=== PATIENT | male | born 1975 | race African-American/Black ===

== ENCOUNTER 2018-07-30 13:12 | Emergency (ER) | payer OTHER ==
[~2018-07-30] VITALS: Ht 172.7 cm; Wt 83.5 kg
[2018-07-30 15:38] VITALS: BP 112/62
[2018-07-30 16:12] LABS: BASO # 0.1 x10^3/uL (0.0-0.2); BASO % 1 % (0-3); EOS # 0.1 x10^3/uL (0.0-0.7); EOS % 2 % (0-3); HEMATOCRIT 46.1 % (39.0-53.0); HEMOGLOBIN 15.6 g/dL (13.0-17.5); LYMPH % 42 % (24-48); MEAN CORPUSCULAR HEMOGLOBIN 31 pg (25-35); MEAN CORPUSCULAR HGB CONC 34 g/dL (31-37); MEAN CORPUSCULAR VOLUME 90 fL (79-100); MONO # 0.5 x10^3/uL (0.0-1.1); MONO % 7 % (0-9); NEUT # 3.5 x10^3uL (1.8-7.7); NEUT % 49 % (31-73); PLATELET COUNT 379 x10^3/uL (140-400); RED BLOOD COUNT 5.11 x10^6/uL (4.30-5.70); RED CELL DISTRIBUTION WIDTH 14.1 % (11.5-14.5); WHITE BLOOD COUNT 7.1 x10^3/uL (4.0-11.0)
[2018-07-30 16:28] LABS: CALCIUM 8.9 mg/dL (8.5-10.1); CREATININE 0.9 mg/dL (0.7-1.3); GFR 112.5; POTASSIUM 3.8 mmol/L (3.5-5.1)
--- NOTE | 2018-07-30 16:29 | RAD ---
EXAM: Head CT without contrast. HISTORY: Headache. TECHNIQUE: Computed tomographic images of the head were obtained without contrast. *One or more of the following individualized dose reduction techniques were utilized for this examination: 1. Automated exposure control. 2. Adjustment of the mA and/or kV according to patient size. 3. Use of iterative reconstruction technique. COMPARISON: None. FINDINGS: There is no acute or subacute extra-axial or intraparenchymal hemorrhage. There is no mass effect or midline shift. There is no hydrocephalus. The chandler-white matter differentiation pattern is intact The visualized portions of the orbits, paranasal sinuses and mastoid air cells are unremarkable. No suspicious calvarial lesion is seen. There are suspected incidental bone islands within the right superior lateral orbital ridge. IMPRESSION: No acute intracranial findings. Electronically signed by: Erendira Mayers MD (07/30/2018 4:25 PM) [place] [id number]
[2018-07-30] MEDS ORDERED: DEXAMETHASONE SOD PHOS 20 MG/5 ML VIAL. IV ONE (16:30)
[2018-07-30] MEDS ORDERED: KETOROLAC 15 MG/ML VIAL. IV ONE (16:30)
[2018-07-30] MEDS ORDERED: diphenhydrAMINE 50 MG/ML VIAL IVP ONE (16:30)
[2018-07-30] MEDS ORDERED: IV NORMAL SALINE 1000ML BAG 1,000 ML IV ONE (16:30)
[2018-07-30 16:35] LABS: ALBUMIN 3.7 g/dL (3.4-5.0); ALBUMIN/GLOBULIN RATIO 1.1 (1.0-1.7); TOTAL BILIRUBIN 0.2 mg/dL (0.2-1.0); TOTAL PROTEIN 7.2 g/dL (6.4-8.2)
--- NOTE | 2018-07-30 16:38 | PHYS DOC ---
Past Medical History Past Medical History: No Pertinent History, Migraines Past Surgical History: No Surgical History Additional Information: 1\2 PACK A DAY Alcohol Use: None Drug Use: None Adult General Chief Complaint Chief Complaint: HEADACHE HPI HPI 43-year-old male presents for evaluation of right frontal headache for 3 weeks. He reports had some nausea earlier today but has not had any in the past. No vomiting, photophobia, vision changes. No recent head injuries or falls. He has been taking ibuprofen at home which she reports helps for several hours but the headache seems to return between 12 and 24 hours later. Review of Systems Review of Systems Constitutional: Denies fever or chills [] Eyes: Denies change in visual acuity, redness, or eye pain [] HENT: Denies nasal congestion or sore throat [] Respiratory: Denies cough or shortness of breath [] Cardiovascular: No additional information not addressed in HPI [] GI: Denies abdominal pain, vomiting, bloody stools or diarrhea [] : Denies dysuria or hematuria [] Musculoskeletal: Denies back pain or joint pain [] Integument: Denies rash or skin lesions [] All other systems were reviewed and found to be within normal limits, except as documented in this note. Current Medications Current Medications Current Medications Medications (Trade) Dose Ordered Sig/Magdalene Start Time Stop Time Status Last Admin Dose Admin Dexamethasone Sodium Phosphate (Decadron) 10 mg 1X ONCE 07/30/18 16:30 07/30/18 16:31 DC 07/30/18 16:32 10 MG Diphenhydramine HCl (Benadryl) 25 mg 1X ONCE 07/30/18 16:30 07/30/18 16:31 DC 07/30/18 16:33 25 MG Ketorolac Tromethamine (Toradol 15mg Vial) 15 mg 1X ONCE 07/30/18 16:30 07/30/18 16:31 DC 07/30/18 16:33 15 MG Sodium Chloride 1,000 ml @ 1,000 mls/hr 1X ONCE 07/30/18 16:30 07/30/18 17:29 07/30/18 16:29 1,000 MLS/HR Allergies Allergies Allergies Coded Allergies Type Severity Reaction Last Updated Verified No Known Drug Allergies 04/22/16 No Physical Exam Physical Exam Constitutional: Well developed, well nourished, no acute distress, non-toxic appearance. [] Eyes: PERRLA, EOMI, conjunctiva normal, no discharge. [] Neck: Normal range of motion, no tenderness, supple, no stridor. [] Cardiovascular:Heart rate regular rhythm, no murmur [] Lungs & Thorax: Bilateral breath sounds clear to auscultation [] Skin: Warm, dry, no erythema, no rash. [] Extremities: No tenderness, no cyanosis, no clubbing, ROM intact, no edema. [] Neurologic: Alert and oriented X 3, normal motor function, normal sensory function, no focal deficits noted. [] Psychologic: Affect normal, judgement normal, mood normal. [] Current Patient Data Vital Signs Vital Signs Date Time Temp Pulse Resp B/P (MAP) Pulse Ox O2 Delivery O2 Flow Rate FiO2 07/30/18 15:38 98.0 77 18 112/62 (79) 100 Room Air 98.0 Lab Values Laboratory Tests Test 07/30/18 16:03 White Blood Count 7.1 x10^3/uL (4.0-11.0) Red Blood Count 5.11 x10^6/uL (4.30-5.70) Hemoglobin 15.6 g/dL (13.0-17.5) Hematocrit 46.1 % (39.0-53.0) Mean Corpuscular Volume 90 fL (79-100) Mean Corpuscular Hemoglobin 31 pg (25-35) Mean Corpuscular Hemoglobin Concent 34 g/dL (31-37) Red Cell Distribution Width 14.1 % (11.5-14.5) Platelet Count 379 x10^3/uL (140-400) Neutrophils (%) (Auto) 49 % (31-73) Lymphocytes (%) (Auto) 42 % (24-48) Monocytes (%) (Auto) 7 % (0-9) Eosinophils (%) (Auto) 2 % (0-3) Basophils (%) (Auto) 1 % (0-3) Neutrophils # (Auto) 3.5 x10^3uL (1.8-7.7) Lymphocytes # (Auto) 3.0 x10^3/uL (1.0-4.8) Monocytes # (Auto) 0.5 x10^3/uL (0.0-1.1) Eosinophils # (Auto) 0.1 x10^3/uL (0.0-0.7) Basophils # (Auto) 0.1 x10^3/uL (0.0-0.2) Sodium Level 140 mmol/L (136-145) Potassium Level 3.8 mmol/L (3.5-5.1) Chloride Level 105 mmol/L (98-107) Carbon Dioxide Level 29 mmol/L (21-32) Anion Gap 6 (6-14) Blood Urea Nitrogen 11 mg/dL (8-26) Creatinine 0.9 mg/dL (0.7-1.3) Estimated GFR (Cockcroft-Gault) 112.5 BUN/Creatinine Ratio 12 (6-20) Glucose Level 96 mg/dL (70-99) Calcium Level 8.9 mg/dL (8.5-10.1) Total Bilirubin 0.2 mg/dL (0.2-1.0) Aspartate Amino Transferase (AST) 20 U/L (15-37) Alanine Aminotransferase (ALT) 37 U/L (16-63) Alkaline Phosphatase 45 U/L (46-116) L Total Protein 7.2 g/dL (6.4-8.2) Albumin 3.7 g/dL (3.4-5.0) Albumin/Globulin Ratio 1.1 (1.0-1.7) Laboratory Tests 07/30/18 16:03 Laboratory Tests 07/30/18 16:03 EKG EKG [] Radiology/Procedures Radiology/Procedures [PROCEDURE: CT HEAD WO CONTRAST EXAM: Head CT without contrast. HISTORY: Headache. TECHNIQUE: Computed tomographic images of the head were obtained without contrast. *One or more of the following individualized dose reduction techniques were utilized for this examination: 1. Automated exposure control. 2. Adjustment of the mA and/or kV according to patient size. 3. Use of iterative reconstruction technique. COMPARISON: None. FINDINGS: There is no acute or subacute extra-axial or intraparenchymal hemorrhage. There is no mass effect or midline shift. There is no hydrocephalus. The chandler-white matter differentiation pattern is intact The visualized portions of the orbits, paranasal sinuses and mastoid air cells are unremarkable. No suspicious calvarial lesion is seen. There are suspected incidental bone islands within the right superior lateral orbital ridge. IMPRESSION: No acute intracranial findings. Electronically signed by: Erendira Fierro MD (07/30/2018 4:25 PM) [id number] DICTATED and SIGNED BY: ERENDIRA FIERRO MD DATE: 07/30/18 1483 ] Course & Med Decision Making Course & Med Decision Making Labs are within normal limits, CT head is negative for acute pathology. Patient reports medications given today in the emergency room have relieved his headache. He is neurologically intact, stable for discharge home. Recommend follow-up with primary care doctor in 2-3 days, return to ER for new or worsening symptoms. Dragon Disclaimer Dragon Disclaimer This electronic medical record was generated, in whole or in part, using a voice recognition dictation system. Departure Departure Impression: Primary Impression: Headache Disposition: 01 HOME, SELF-CARE Condition: STABLE Referrals: NO PCP (PCP) Patient Instructions: General Headache Without Cause CHERRI RODRIGES APRN Jul 30, 2018 16:38
== END 2018-07-30 16:54 | disposition home or self-care (01) ==
LOC: ER 13:12
DX: R51 Headache (principal); F17.210 Nicotine dependence, cigarettes, uncomplicated
CPT/HCPCS: 36415; 70450; 80053; 85025; 96374; 96375; 99285; J1100; J1200; J1885; J7030

== ENCOUNTER 2018-12-04 15:00 | Emergency (ER) | payer BC ==
[~2018-12-04] VITALS: Ht 175.3 cm; Wt 86.2 kg
[2018-12-04 15:16] VITALS: BP 132/72
[2018-12-04] MEDS ORDERED: METH4TAB2 PO (15:19)
--- NOTE | 2018-12-04 15:19 | PHYS DOC ---
Past Medical History Past Medical History: No Pertinent History, Migraines Past Surgical History: No Surgical History Alcohol Use: None Drug Use: None Adult General Chief Complaint Chief Complaint: Congestion HPI HPI Patient is a 43 year old male who presents with states yesterday began having a sore throat and feeling like his tonsils are swollen. Afebrile and no other symptoms. Patient currently has no pain. Patient states that he gargled some warm salt water earlier take his throat feel better. Review of Systems Review of Systems Constitutional: Denies fever or chills [] Eyes: Denies change in visual acuity, redness, or eye pain [] HENT: Denies nasal congestion. sore throat [] Respiratory: Denies cough or shortness of breath [] Cardiovascular: No additional information not addressed in HPI [] GI: Denies abdominal pain, nausea, vomiting, bloody stools or diarrhea [] : Denies dysuria or hematuria [] Musculoskeletal: Denies back pain or joint pain [] Integument: Denies rash or skin lesions [] Neurologic: Denies headache, focal weakness or sensory changes [] Endocrine: Denies polyuria or polydipsia [] All other systems were reviewed and found to be within normal limits, except as documented in this note. Allergies Allergies Allergies Coded Allergies Type Severity Reaction Last Updated Verified No Known Drug Allergies 04/22/16 No Physical Exam Physical Exam Constitutional: Well developed, well nourished, no acute distress, non-toxic appearance. [] HENT: Normocephalic, atraumatic, bilateral external ears normal, oropharynx moist, no oral exudates, nose normal. throat red and swollen but no exudates. [] Eyes: PERRLA, EOMI, conjunctiva normal, no discharge. [] Neck: Normal range of motion, no tenderness, supple, no stridor. [] Cardiovascular:Heart rate regular rhythm, no murmur [] Lungs & Thorax: Bilateral breath sounds clear to auscultation [] Abdomen: Bowel sounds normal, soft, no tenderness, no masses, no pulsatile masses. [] Skin: Warm, dry, no erythema, no rash. [] Back: No tenderness, no CVA tenderness. [] Extremities: No tenderness, no cyanosis, no clubbing, ROM intact, no edema. [] Neurologic: Alert and oriented X 3, normal motor function, normal sensory function, no focal deficits noted. [] Psychologic: Affect normal, judgement normal, mood normal. [] Current Patient Data Vital Signs Vital Signs Date Time Temp Pulse Resp B/P (MAP) Pulse Ox O2 Delivery O2 Flow Rate FiO2 12/04/18 15:16 97.9 81 16 132/72 (92) 99 Room Air 97.9 Lab Values Laboratory Tests Test 12/04/18 15:17 Group A Streptococcus Rapid Negative (NEGATIVE) EKG EKG [] Radiology/Procedures Radiology/Procedures [] Course & Med Decision Making Course & Med Decision Making Patient is a 43 year old male who presents with states yesterday began having a sore throat and feeling like his tonsils are swollen. Afebrile and no other symptoms. Patient currently has no pain. Patient states that he gargled some warm salt water earlier take his throat feel better. Alert and Oriented. Afebrile. Mucus membranes moist. Bilateral tympanic membranes are pearly white. Lungs are clear in all lobes. abdomen soft and nontender. Patient denies soa, chest pain, abdominal pain, fever, cold symptoms. Strep negative. Patient will be treated with a medrol dose pack and to continue using warm salt water gargles. Dragon Disclaimer Dragon Disclaimer This electronic medical record was generated, in whole or in part, using a voice recognition dictation system. Departure Departure Impression: Primary Impression: Throat pain in adult Disposition: 01 HOME, SELF-CARE Condition: STABLE Referrals: NO PCP (PCP) Patient Instructions: Sore Throat Additional Instructions: Follow up with primary care. Continue warm salt water gargles. Take medications as prescribed. Scripts Methylprednisolone (MEDROL) 4 Mg Tab.ds.pk 1 PKG PO UD, #1 PKG Prov: VENANCIO YANCEY APRN 12/04/18 Attending Signature Attending Signature I have reviewed the PA/MEAT TEAM LEAD's note and plan of care. I was available for consultation as needed during the patient's visit in the emergency department. I agree with the clinical impression, plan, and disposition. VENANCIO YANCEY APRN Dec 04, 2018 15:19 DIAMOND GUZMAN DO Dec 05, 2018 09:48
== END 2018-12-04 15:33 | disposition home or self-care (01) ==
LOC: ER 15:00
DX: R07.0 Pain in throat (principal); G43.909 Migraine, unspecified, not intractable, without status migrainosus
CPT/HCPCS: 87070; 87880; 99283

== ENCOUNTER 2019-02-19 21:38 | Emergency (ER) | payer BC ==
[~2019-02-19] VITALS: Ht 175.3 cm; Wt 88.5 kg
[~2019-02-19 21:38] MED LIST: METH4TAB2 PO
[2019-02-19] MEDS ORDERED: IV NORMAL SALINE 1000ML BAG 1,000 ML IV ONE (22:15)
[2019-02-19] MEDS ORDERED: KETOROLAC 30 MG/ML VIAL. IV ONE (22:15)
[2019-02-19] MEDS ORDERED: METOCLOPRAMIDE HCL 10 MG/2 ML VIAL. IV ONE (22:15)
[2019-02-19] MEDS ORDERED: diphenhydrAMINE 50 MG/ML VIAL IVP ONE (22:15)
--- NOTE | 2019-02-19 22:21 | PHYS DOC ---
Past Medical History Past Medical History: No Pertinent History, Migraines Past Surgical History: No Surgical History Alcohol Use: None Drug Use: None Adult General Chief Complaint Chief Complaint: HEADACHE HPI HPI 43-year-old otherwise healthy male presents with a several month history of headaches. He states the headaches have been waxing and waning but becoming more frequent recently. He states currently he's had a headache for almost 24 hours. He describes both photophobia and phonophobia. He denies any lateralizing neurologic weakness. He denies any speech or gait disturbance. He states he does have a family history of migraine headaches. He has not been taking anything for his headaches. He also denies any fever or neck pain.[] Review of Systems Review of Systems Constitutional: Denies fever or chills [] Eyes: Denies change in visual acuity, redness, or eye pain [] HENT: Denies nasal congestion or sore throat [] Respiratory: Denies cough or shortness of breath [] Cardiovascular: No additional information not addressed in HPI [] GI: Denies abdominal pain, nausea, vomiting, bloody stools or diarrhea [] : Denies dysuria or hematuria [] Musculoskeletal: Denies back pain or joint pain [] Integument: Denies rash or skin lesions [] Neurologic: Per history of present illness[] Endocrine: Denies polyuria or polydipsia [] All other systems were reviewed and found to be within normal limits, except as documented in this note. Current Medications Current Medications Current Medications Medications (Trade) Dose Ordered Sig/Magdalene Start Time Stop Time Status Last Admin Dose Admin Diphenhydramine HCl (Benadryl) 25 mg 1X ONCE 02/19/19 22:15 02/19/19 22:16 DC 02/19/19 22:23 25 MG Ketorolac Tromethamine (Toradol 30mg Vial) 30 mg 1X ONCE 02/19/19 22:15 02/19/19 22:16 DC 02/19/19 22:24 30 MG Metoclopramide HCl (Reglan Vial) 10 mg 1X ONCE 02/19/19 22:15 02/19/19 22:16 DC 02/19/19 22:23 10 MG Sodium Chloride 1,000 ml @ 1,000 mls/hr 1X ONCE 02/19/19 22:15 02/19/19 23:14 02/19/19 22:23 1,000 MLS/HR Allergies Allergies Allergies Coded Allergies Type Severity Reaction Last Updated Verified No Known Drug Allergies 04/22/16 No Physical Exam Physical Exam Constitutional: Well developed, well nourished, mild to moderate distress, non- toxic appearance. [] HENT: Normocephalic, atraumatic, bilateral external ears normal, oropharynx moist, no oral exudates, nose normal. [] Eyes: PERRLA, EOMI, conjunctiva normal, no discharge. [] Neck: Normal range of motion, no tenderness, supple, no stridor. [] Cardiovascular:Heart rate regular rhythm, no murmur [] Lungs & Thorax: Bilateral breath sounds clear to auscultation [] Abdomen: Bowel sounds normal, soft, no tenderness, no masses, no pulsatile masses. [] Skin: Warm, dry, no erythema, no rash. [] Back: No tenderness, no CVA tenderness. [] Extremities: No tenderness, no cyanosis, no clubbing, ROM intact, no edema. [] Neurologic: Alert and oriented X 3, normal motor function, normal sensory function, no focal deficits noted. [] Psychologic: Anxious[] EKG EKG [] Radiology/Procedures Radiology/Procedures [] Course & Med Decision Making Course & Med Decision Making Pertinent Labs and Imaging studies reviewed. (See chart for details) [ED course: Evaluation reveals a 43-year-old male with migrainous type symptoms. He was given IV fluids, Toradol 30 mg IV, Reglan 10 mg IV and Benadryl 25 mg IV with near complete resolution of his headache. I will provide him with some Reglan to take at home. I've encouraged the patient to follow with primary care physician to continue to follow with his headaches.] Dragon Disclaimer Dragon Disclaimer This electronic medical record was generated, in whole or in part, using a voice recognition dictation system. Departure Departure Impression: Primary Impression: Migraine Disposition: 01 HOME, SELF-CARE Condition: IMPROVED Referrals: NO PCP (PCP) Patient Instructions: Migraine Headache Additional Instructions: Return to the emergency department with any new or concerning symptoms Scripts Metoclopramide Hcl (REGLAN) 10 Mg Tablet 1 TAB PO Q8HRS PRN for migraine, #30 TAB Prov: RONNI HOLT DO 02/19/19 Problem Qualifiers Primary Impression: Migraine Migraine type: unspecified Status migrainosus presence: without status migrainosus Intractability: not intractable Qualified Codes: G43.909 - Migraine, unspecified, not intractable, without status migrainosus RONNI HOLT DO Feb 19, 2019 22:21
[2019-02-19] MEDS ORDERED: METO10TA81 PO (22:58)
[2019-02-19 23:00] VITALS: BP 116/66
== END 2019-02-19 23:04 | disposition home or self-care (01) ==
LOC: ER 21:38
DX: G43.909 Migraine, unspecified, not intractable, without status migrainosus (principal)
CPT/HCPCS: 96374; 96375; 99283; J1200; J1885; J2765; J7030

== ENCOUNTER 2019-09-02 07:53 | Emergency (ER) | payer BC ==
[~2019-09-02] VITALS: Ht 175.3 cm; Wt 95.3 kg
[~2019-09-02 07:53] MED LIST changes: +METO10TA81 PO
[2019-09-02 08:55] VITALS: BP 136/75
[2019-09-02] MEDS ORDERED: ONDA4TAB12 PO (09:16)
--- NOTE | 2019-09-02 09:17 | PHYS DOC ---
Past Medical History Past Medical History: Migraines (VENANCIO YANCEY APRN) Past Surgical History: No Surgical History (VENANCIO YANCEY APRN) Alcohol Use: None Drug Use: None (VENANCIO YANCEY APRN) Attending Signature I have participated in the care of this patient and I have reviewed and agree with all pertinent clinical information above including history, exam, and recommendations. (DIETER MARIN MD) Adult General Chief Complaint Chief Complaint: OTHER COMPLAINTS HPI HPI Patient is a 44 year old male who presents with states that last night began vomiting and work sent him home. Patient states that he feels much better and has not vomited this morning has ate a sausage biscuit and has kept down a lot of water. Patient denies any abdominal pain now. Patient is wanting a work note stating go back to work tonight. Patient denies any abdominal pain, nausea, vomiting, diarrhea, fever, chest pain, shortness of air, recent illness. Patient rates his pain a 0 out of 10. (VENANCIO YANCEY APRN) Review of Systems Review of Systems GI: abdominal pain, nausea, vomiting, denies bloody stools or diarrhea [] All other systems were reviewed and found to be within normal limits, except as documented in this note. (VENANCIO YANCEY APRN) Allergies Allergies Allergies Coded Allergies Type Severity Reaction Last Updated Verified No Known Drug Allergies 04/22/16 No (DIETER MARIN MD) Physical Exam Physical Exam Constitutional: Well developed, well nourished, no acute distress, non-toxic appearance. [] HENT: Normocephalic, atraumatic, bilateral external ears normal, oropharynx moist, no oral exudates, nose normal. [] Eyes: PERRLA, EOMI, conjunctiva normal, no discharge. [] Neck: Normal range of motion, no tenderness, supple, no stridor. [] Cardiovascular:Heart rate regular rhythm, no murmur [] Lungs & Thorax: Bilateral breath sounds clear to auscultation [] Abdomen: Bowel sounds normal, soft, no tenderness, no masses, no pulsatile masses. [] Skin: Warm, dry, no erythema, no rash. [] Back: No tenderness, no CVA tenderness. [] Extremities: No tenderness, no cyanosis, no clubbing, ROM intact, no edema. [] Neurologic: Alert and oriented X 3, normal motor function, normal sensory function, no focal deficits noted. [] Psychologic: Affect normal, judgement normal, mood normal. [] Normal Physical exam (VENANCIO YANCEY APRN) Current Patient Data Vital Signs Vital Signs Date Time Temp Pulse Resp B/P (MAP) Pulse Ox O2 Delivery O2 Flow Rate FiO2 09/02/19 08:55 98.4 77 16 136/75 (95) 99 Room Air 98.4 (DIETER MARIN MD) EKG EKG [] (VENANCIO YANCEY APRN) Radiology/Procedures Radiology/Procedures [] (VENANCIO YANCEY APRN) Course & Med Decision Making Course & Med Decision Making Lungs clear to auscultation all lobes. Abdomen soft and nontender. Afebrile. Alert and oriented. Skin pink warm and dry. Mucus membranes moist. Ambulatory with steady gait. Denies dysuria. (VENANCIO YANCEY APRN) Dragon Disclaimer Dragon Disclaimer This electronic medical record was generated, in whole or in part, using a voice recognition dictation system. (VENANCIO YANCEY APRN) Departure Departure Impression: Primary Impression: Vomiting Disposition: 01 HOME, SELF-CARE Condition: STABLE Referrals: NO PCP (PCP) Patient Instructions: Nausea and Vomiting Additional Instructions: Follow up with primary care provider. Scripts Ondansetron (ONDANSETRON ODT) 4 Mg Tab.rapdis 1 TAB PO PRN Q6-8HRS, #16 TAB Prov: VENANCIO YANCEY APRN 09/02/19 Problem Qualifiers Primary Impression: Vomiting Vomiting type: unspecified Vomiting Intractability: non-intractable Nausea presence: without nausea Qualified Codes: R11.11 - Vomiting without nausea VENANCIO YANCEY APRN Sep 02, 2019 09:17 DIETER MARIN MD Sep 03, 2019 05:57
== END 2019-09-02 09:33 | disposition home or self-care (01) ==
LOC: ER 07:53
DX: R11.11 Vomiting without nausea (principal); G43.909 Migraine, unspecified, not intractable, without status migrainosus
CPT/HCPCS: 99283

== ENCOUNTER 2019-12-18 21:50 | Emergency (ER) | payer BC ==
[~2019-12-18] VITALS: Ht 175.3 cm; Wt 93.0 kg
[~2019-12-18 21:50] MED LIST changes: +ONDA4TAB12 PO
[2019-12-18 22:00] VITALS: BP 153/104
[2019-12-18] MEDS ORDERED: METH4TAB2 PO (23:06)
--- NOTE | 2019-12-18 23:06 | PHYS DOC ---
Past Medical History Past Medical History: Migraines (DIAMOND HOLLAND APRN) Past Surgical History: No Surgical History (DIAMOND HOLLAND APRN) Smoking Status: Current Every Day Smoker Alcohol Use: None Drug Use: None (DIAMOND HOLLAND APRN) Attending Signature I have participated in the care of this patient and I have reviewed and agree with all pertinent clinical information above including history, exam, and recommendations. (DIETER MARIN MD) Adult General Chief Complaint Chief Complaint: BACK PAIN - NO INJURY [facility] HPI Patient is a 44 year old male who presents with low back pain has been ongoing for 3 weeks. The patient states that he's been having the pain off and on for the last 2 years intermittently. He states that he has times where he lifts heavy items frequently. States that his pain as 7 out of 10 in severity and sharp. The patient states that he's never had an MRI or had any formal evaluation on his back. States he took a Tylenol couple days ago that did not help. Denies additional symptoms. Complete ROS were reviewed and found to be within normal limits, except as documented in the HPI (DIAMOND HOLLAND APRN) Current Medications Current Medications Current Medications Medications (Trade) Dose Ordered Sig/Magdalene Start Time Stop Time Status Last Admin Dose Admin Dexamethasone (Decadron) 10 mg 1X ONCE 12/18/19 23:15 12/18/19 23:16 DC 12/18/19 23:07 10 MG Ketorolac Tromethamine (Toradol 30mg Vial) 30 mg 1X ONCE 12/18/19 23:15 12/18/19 23:16 DC 12/18/19 23:07 30 MG (DIETER MARIN MD) Allergies Allergies Allergies Coded Allergies Type Severity Reaction Last Updated Verified No Known Drug Allergies 04/22/16 No (DIETER MARIN MD) Physical Exam Physical Exam Constitutional: Well developed, well nourished, no acute distress, non-toxic appearance. [] HENT: Normocephalic, atraumatic, bilateral external ears normal, oropharynx moist, no oral exudates, nose normal. [] Eyes: PERRLA, EOMI, conjunctiva normal, no discharge. [] Neck: Normal range of motion, no tenderness, supple, no stridor. [] Cardiovascular:Heart rate regular rhythm, no murmur [] Lungs & Thorax: Bilateral breath sounds clear to auscultation [] Skin: Warm, dry, no erythema, no rash. [] Back: lumbar spinal tenderness on palpation. Extremities: No tenderness, no cyanosis, no clubbing, ROM intact, no edema. [] Neurologic: Alert and oriented X 3, normal motor function, normal sensory function, no focal deficits noted. [] Psychologic: Affect normal, judgement normal, mood normal. [] (DIAMOND HOLLAND APRN) Current Patient Data Vital Signs Vital Signs Date Time Temp Pulse Resp B/P (MAP) Pulse Ox O2 Delivery O2 Flow Rate FiO2 12/18/19 22:00 98.4 98 16 153/104 (120) 98 Room Air 98.4 (DIETER MARIN MD) EKG EKG [] (DIAMOND HOLLAND APRN) Radiology/Procedures Radiology/Procedures [] (DIAMOND HOLLAND APRN) Course & Med Decision Making Course & Med Decision Making Pertinent Labs and Imaging studies reviewed. (See chart for details) Discussed with patient that he needs to follow up with a primary care doctor for an outpatient MRI. Will give Decadron and Toradol in ER. Will prescribe Medrol dose pack. The patient does not want a prescription for muscle relaxers. (DIAMOND HOLLAND APRN) Dragon Disclaimer Dragon Disclaimer This electronic medical record was generated, in whole or in part, using a voice recognition dictation system. (DIAMOND HOLLAND APRN) Departure Departure Impression: Primary Impression: Back pain Disposition: 01 HOME, SELF-CARE Condition: STABLE Referrals: NO PCP (PCP) Patient Instructions: Back Pain, Adult Additional Instructions: Thank you for visiting [facility]. We appreciate you trusting us with your care. If any additional problems come up don't hesitate to return to visit us. Please follow up with your primary care provider so they can plan additional care if needed and know about the problem that you had. If symptoms worsen come back to the Emergency Department. Any concerning symptoms that start such as chest pain, shortness of air, weakness or numbness on one side of the body, running high fevers or any other concerning symptoms return to the ER. Scripts Methylprednisolone (MEDROL) 4 Mg Tab.ds.pk 1 PKG PO UD, #1 PKG Prov: DIAMOND HOLLAND APRN 12/18/19 Problem Qualifiers Primary Impression: Back pain Back pain location: low back pain Chronicity: acute Back pain laterality: midline Sciatica presence: without sciatica Qualified Codes: M54.5 - Low back pain DIAMOND HOLLAND APRN Dec 18, 2019 23:06 DIETER MARIN MD Dec 18, 2019 23:55
[2019-12-18] MEDS ORDERED: DEXAMETHASONE 4 MG TABLET PO ONE (23:15)
[2019-12-18] MEDS ORDERED: KETOROLAC 30 MG/ML VIAL. IM ONE (23:15)
== END 2019-12-18 23:15 | disposition home or self-care (01) ==
LOC: ER 21:50
DX: M54.5 Low back pain (principal); G43.909 Migraine, unspecified, not intractable, without status migrainosus; F17.200 Nicotine dependence, unspecified, uncomplicated
CPT/HCPCS: 96372; 99283; J1885; J8540

== ENCOUNTER 2021-04-30 06:00 | Emergency (ER) | payer BC ==
[~2021-04-30] VITALS: Ht 175.3 cm; Wt 91.3 kg
[2021-04-30] MEDS ORDERED: NAPR-682 PO (06:37)
[2021-04-30] MEDS ORDERED: AMOX500C PO (06:37)
--- NOTE | 2021-04-30 06:37 | PHYS DOC ---
Past Medical History Past Medical History: Migraines Past Surgical History: No Surgical History Smoking Status: Current Every Day Smoker Alcohol Use: None Drug Use: None General Adult EDM: Chief Complaint: DENTAL PROBLEM HPI: HPI: Patient is a 45 year old male who presented to ER for evaluation of right upper dental pain started last night. Patient stated that he had a broken tooth there for a while, last night the pain is flaring up again. Patient had not been evaluated by dentist yet. Patient denies any fever, no cough, no trouble breathing, no headache, no neck pain. Review of Systems: Review of Systems: Constitutional: Denies fever or chills. [] Eyes: Denies change in visual acuity. [] HENT: Denies nasal congestion or sore throat. Positive for dental pain Respiratory: Denies cough or shortness of breath. [] Cardiovascular: Denies chest pain or edema. [] GI: Denies abdominal pain, nausea, vomiting, bloody stools or diarrhea. [] : Denies dysuria. [] Musculoskeletal: Denies back pain or joint pain. [] Integument: Denies rash. [] Neurologic: Denies headache, focal weakness or sensory changes. [] Endocrine: Denies polyuria or polydipsia. [] Lymphatic: Denies swollen glands. [] Psychiatric: Denies depression or anxiety. [] Heart Score: C/O Chest Pain: N/A Risk Factors: Risk Factors: DM, Current or recent (<one month) smoker, HTN, HLP, family history of CAD, obesity. Risk Scores: Score 0 - 3: 2.5% MACE over next 6 weeks - Discharge Home Score 4 - 6: 20.3% MACE over next 6 weeks - Admit for Clinical Observation Score 7 - 10: 72.7% MACE over next 6 weeks - Early Invasive Strategies Allergies: Allergies: Allergies Coded Allergies Type Severity Reaction Last Updated Verified No Known Drug Allergies 04/22/16 No Physical Exam: PE: Constitutional: Well developed, well nourished, no acute distress, non-toxic appearance. [] HENT: Normocephalic, atraumatic, bilateral external ears normal, oropharynx mois t, no oral exudates, nose normal. Right upper canine is broken to the root, gumline is swollen. No trismus. Eyes: PERRLA, EOMI, conjunctiva normal, no discharge. [] Neck: Normal range of motion, no tenderness, supple, no stridor. [] Cardiovascular:Heart rate regular rhythm, no murmur [] Lungs & Thorax: Bilateral breath sounds clear to auscultation [] Neurologic: Alert and oriented X 3, normal motor function, normal sensory function, no focal deficits noted. [] Psychologic: Affect normal, judgement normal, mood normal. [] Current Patient Data: Vital Signs: Vital Signs Date Time Temp Pulse Resp B/P (MAP) Pulse Ox O2 Delivery O2 Flow Rate FiO2 04/30/21 06:15 98.2 95 18 116/74 (88) 97 Room Air 98.2 EKG: EKG: [] Radiology/Procedures: Radiology/Procedures: [] Course & Med Decision Making: Course & Med Decision Making Pertinent Labs and Imaging studies reviewed. (See chart for details) [] Dragon Disclaimer: Dragon Disclaimer: This electronic medical record was generated, in whole or in part, using a voice recognition dictation system. Departure Departure Impression: Primary Impression: Pain, dental Disposition: HOME / SELF CARE / HOMELESS Condition: STABLE Referrals: NO PCP (PCP) Please follow up with your dentist this week. Patient Instructions: Dental Pain Additional Instructions: Thank you for visiting our Emergency Department. We appreciate you trusting us with your care. If any additional problems come up don't hesitate to return to visit us. Please follow up with your primary care provider so they can plan additional care if needed and know about the problem that you had. If symptoms worsen come back to the Emergency Department. Any concerning symptoms that start such as chest pain, shortness of air, weakness or numbness on one side of the body, running high fevers or any other concerning symptoms return to the ER. Scripts Amoxicillin (AMOXICILLIN) 500 Mg Capsule 1 CAP PO TID for 10 Days, #30 CAP Prov: SEAN AGUILAR DO 04/30/21 Naproxen Sodium (ANAPROX DS) 550 Mg Tablet 1 TAB PO BID PRN for PAIN for 15 Days, #30 TAB 0 Refills Prov: SEAN AGUILAR DO 04/30/21 SEAN AGUILAR DO Apr 30, 2021 06:37
[2021-04-30 06:50] VITALS: BP 134/73
[2021-04-30] MEDS ORDERED: AMOXICILLIN 250 MG CAPSULE. PO ONE (07:00)
[2021-04-30] MEDS ORDERED: IBUPROFEN 400 MG TABLET. PO ONE (07:00)
== END 2021-04-30 06:50 | disposition home or self-care (01) ==
LOC: ER 06:00
DX: K08.89 Other specified disorders of teeth and supporting structures (principal); G43.909 Migraine, unspecified, not intractable, without status migrainosus; F17.200 Nicotine dependence, unspecified, uncomplicated
CPT/HCPCS: 99283